=== PATIENT | male | born 2005 | race Caucasian/White ===

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

== ENCOUNTER 2023-05-19 09:52 | Emergency (ER) | payer OTHER, MEDICAID ==
[2023-05-19 11:23] VITALS: BP 133/66; PULSE 85
== END 2023-05-19 11:20 | disposition home or self-care (01) ==
LOC: JP.ED 09:52
DX: S13.4XXA Sprain of ligaments of cervical spine, initial encounter (principal); J45.909 Unspecified asthma, uncomplicated; Z86.16 Personal history of COVID-19; Z79.899 Other long term (current) drug therapy; Z79.51 Long term (current) use of inhaled steroids; Z91.048 Other nonmedicinal substance allergy status; V49.49XA Driver injured in collision with other motor vehicles in traffic accident, initial encounter; Y93.89 Activity, other specified
CPT/HCPCS: 99284

== ENCOUNTER 2024-04-24 08:14 | Emergency (ER) | payer MEDICAID, OTHER ==
[2024-04-24 08:41] VITALS: BP 152/95; PULSE 110
[2024-04-24] MEDS: Diphtheria,Pertussis(Acell),Tetanus Vaccine 0.5 ML Syringe IM ONE (08:54)
[2024-04-24] MEDS: Lidocaine 1% with EPINEPHrine 1:100,000 50 ML MDV SUBCUT STA (08:54)
[2024-04-24] MEDS: Bacitracin Oint 1 GM U/D Packet TOP ONE (08:55)
== END 2024-04-24 09:16 | disposition home or self-care (01) ==
LOC: JP.ED 08:14
DX: S61.411A Laceration without foreign body of right hand, initial encounter (principal); J45.909 Unspecified asthma, uncomplicated; Z86.16 Personal history of COVID-19; Z91.048 Other nonmedicinal substance allergy status; Z79.51 Long term (current) use of inhaled steroids; Z79.899 Other long term (current) drug therapy; W26.0XXA Contact with knife, initial encounter; Z23 Encounter for immunization
CPT/HCPCS: 12002; 90471; 90715; 99282-25

== ENCOUNTER 2024-07-10 13:07 | Emergency (ER) | payer MEDICAID ==
[2024-07-10 13:18] VITALS: BP 140/89; PULSE 117
[2024-07-10] MEDS: Albuterol/Ipratropium 3.0-0.5 MG/3 ML Neb Soln NEB ONE ×2 (13:39→13:40)
== END 2024-07-10 15:26 | disposition home or self-care (01) ==
LOC: JP.ED 13:07
DX: J40 Bronchitis, not specified as acute or chronic (principal); Z86.16 Personal history of COVID-19; Z79.899 Other long term (current) drug therapy; Z91.048 Other nonmedicinal substance allergy status
CPT/HCPCS: 71046; 94640; 99285; J7620; 99283; A9270-GY